=== PATIENT | female | born 1990 | race African-American/Black ===

== ENCOUNTER 2019-06-16 06:26 | Emergency (ER) | payer BC, SELFPAY ==
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
[2019-06-16 06:31] VITALS: BP 130/89; PULSE 83; RESP 20; TEMP 36.6; O2SAT 100
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
[2019-06-16] MEDS: ACETAMINOPHEN 500 MG TABLET 1000 MG PO (07:14)
--- NOTE | 2019-06-16 07:30 | PC.NURSE ---
PT CARE ASSUMED AT THIS TIME, REPORT GIVEN BY SANKET GONCALVES AT BEDSIDE. PT DENIES ANY REQUESTS, VSS, WILL CONTINUE TO MONITOR.
[2019-06-16 07:34] VITALS: BP 138/75; PULSE 78; RESP 18; O2SAT 100
[2019-06-16 07:45] VITALS: BP 118/75; PULSE 75; RESP 16; O2SAT 100
== END 2019-06-16 07:48 | disposition home or self-care (01) ==
PROVIDERS: Emergency Provider Emergency Medicine
DX: S63.502A Unspecified sprain of left wrist, initial encounter (principal); S66.912A Strain of unspecified muscle, fascia and tendon at wrist and hand level, left hand, initial encounter; V47.5XXA Car driver injured in collision with fixed or stationary object in traffic accident, initial encounter
CPT/HCPCS: 73110; 99283; A9270